=== PATIENT | female | born 1950 | race Hispanic/Latino ===

== ENCOUNTER 2017-11-02 11:04 | Outpatient (RCR) | payer MEDICARE | END 2017-11-05 | LOC: PT 11:04 | PROVIDERS: ATTEND Specialist | DX: M75.42 Impingement syndrome of left shoulder (principal); M62.81 Muscle weakness (generalized) | CPT/HCPCS: 97110; 97162; G8984; G8985; G8986 ==

== ENCOUNTER → 2019-02-19 | Day surgery (SDC) | payer MEDICARE ==
[2019-02-18 09:49] LABS: BASOPHILS % 0.5 % (0.0-1.0); EOSINOPHILS # (AUTO) 0.1 (0.0-0.4); EOSINOPHILS % 2.6 % (0.0-6.0); HEMATOCRIT 42.7 % (34.2-44.1); HEMOGLOBIN 14.5 g/dL (12.0-16.0); LYMPHOCYTES # (AUTO) 1.3 (1.0-3.2); LYMPHOCYTES % 33.2 % (18.0-39.1); MEAN CORPUSCULAR HEMOGLOBIN 31.9 pg (28-32); MEAN CORPUSCULAR VOLUME 94.1 fL (81-99); MONOCYTES # (AUTO) 0.3 (0.2-0.8); MONOCYTES % 8.4 % (4.4-11.3); NEUTROPHILS # (AUTO) 2.1 (2.1-6.9); PLATELET COUNT 218 x10e3/uL (140-360); RED BLOOD COUNT 4.54 x10e6/uL (3.6-5.1); RED CELL DISTRIBUTION WIDTH 12.2 % (11.7-14.4)
--- NOTE | 2019-02-18 11:54 | Diagnostic Imaging Report ---
EXAMINATION: CHEST 2 VIEWS INDICATION: Pre-admit. COMPARISON: None FINDINGS: TUBES and LINES: None. LUNGS: Lungs are well inflated. Lungs are clear. There is no evidence of pneumonia or pulmonary edema. PLEURA: No pleural effusion or pneumothorax. HEART AND MEDIASTINUM: The cardiomediastinal silhouette is unremarkable. BONES AND SOFT TISSUES: No acute osseous abnormality. Degenerative changes of the thoracic spine. UPPER ABDOMEN: No free air under the diaphragm. IMPRESSION: No acute radiographic abnormality. Signed by: Dr. Riya Finch MD on 02/18/2019 11:51 AM
[~2019-02-19] MED LIST: CEFAZOLIN SOD 1 GM/NS 50ML 50 ML IV ONE; DEXAMETHASONE SOD PHOS INJ 4 MG/ML VIAL ONE; FENTANYL CITRATE/PF 100MCG/2 ML INJ ONE; HYDRALAZINE HCL 20 MG/ML VIAL ONE; KETOROLAC TROMETHAMINE 30 MG/ML VIAL ONE; LIDOCAINE HCL 2% LOCAL INJ 5 ML SDV VIAL INJ ONE; LISINOPRIL10 MG PO; MIDAZOLAM HCL 2 MG/2 ML VIAL ONE; ONDANSETRON HCL INJ 2MG/ML 2ML 2 MG/ML VIAL ONE; PROPOFOL IV EMULSION 10 MG/ML 20 ML VIAL ONE; SEVOFLURANE INHAL SOLN 250 ML PEN BTL ONE
--- OUTSIDE RECORDS SUMMARY | 2019-02-19 06:24 | XMS REPORT ---
Author Author [facility] Organization [facility] Address Unknown Phone Unavailable Care Team Providers Care Conciliation Court Judge Name Role Phone SHIV WALTER Unavailable Unavailable Payers Payer Name Policy Type Policy Number Effective Date Expiration Date Problems This patient has no known problems. Allergies, Adverse Reactions, Alerts Allergy Name Allergy Type Status Severity Reaction(s) Onset Date Inactive Date Treating Clinician Comments No Known Allergies DA Active U 2017-09-11 00:00:00 Medications This patient has no known medications. Results Test Description Test Time Test Comments Text Results Atomic Results Result Comments CHEST 2 VIEWS 2019-02-18 11:50:00 [place] [address] Patient Name: WANDA GRAMAJO MR #: [id number] : 1950 Age/Sex: 68/F Req #: [id number] Adm Physician: Ordered by: SHIV WALTER MD Report #: [id number] Location: OR Room/Bed: Procedure: [id number] DX/CHEST 2 VIEWS Exam Date: 02/18/19 Exam Time: 1020 REPORT STATUS: Signed EXAMINATION: CHEST 2 VIEWS INDICATION: Pre-admit. COMPARISON: None FINDINGS: TUBES and LINES: None. LUNGS: Lungs are well inflated. Lungs are clear. There is no evidence of pneumonia or pulmonary edema. PLEURA: No pleural effusion or pneumothorax. HEART AND MEDIASTINUM: The cardiomediastinal silhouette is unremarkable. BONES AND SOFT TISSUES: No acute osseous abnormality. Degenerative changes of the thoracic spine. UPPER ABDOMEN: No free air under the diaphragm. IMPRESSION: No acute radiographic abnormality. Signed by: Dr. Bharath Carrington MD on 02/18/2019 11:51 AM Dictated By: BHARATH CARRINGTON MD [id number] Transcribed By: MENDY on 02/18/19 1151 COPY TO: SHIV WALTER MD
--- NOTE | 2019-02-19 07:20 | NUR ---
SPIRITUAL CARE - Pre-Surgery Assessment: Pt in bed. Pt's and daughter at bedside. Pt reported supportive attention from family and friends. Intervention: I provided pastoral presence, hospitality, and sympathetic listening. I acquainted pt with availability of wind field service manager while hospitalized. Outcome: Pt expressed appreciation for visit. No need for follow up indicated at this time. [place] [facility] Department O: [phone] Pager: [phone] ([phone] number calling from)
[2019-02-19 10:45] VITALS: BP 152/83
--- NOTE | 2019-02-19 10:52 | Operative Report ---
DATE OF PROCEDURE: 02/19/2019 SURGEON: Kofi Montana MD PRODUCTION GRIP: Greg Shafer, certified PA. PREOPERATIVE DIAGNOSIS: Right knee medial meniscal tear. POSTOPERATIVE DIAGNOSIS: Right knee medial meniscal tear plus medial parapatellar plica. PROCEDURE: Right knee arthroscopy, partial medial meniscectomy, resection of medial parapatellar plica. INDICATIONS: The patient is a 68-year-old lady who has clinic signs and symptoms consistent with a medial meniscal tear in her right knee. She has failed conservative management and would like to proceed with arthroscopic intervention. The risks and benefits have been explained. Realistic expectations and likelihood of persistent arthritic pain have been explained. She states she understands and wishes to proceed. PROCEDURE IN DETAIL: The patient was brought to the operating room and placed under general anesthetic. Her right lower extremity was prepped and draped in a sterile manner. A preoperative time-out was performed. The extremity had been exsanguinated and a proximal tourniquet was inflated to 300 mmHg. Standard arthroscopy portals were established. The knee was insufflated with sterile saline and systematically inspected. 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 There was a thickened medial parapatellar plica. Attention was directed towards the medial compartment. There were grade 1 changes of the weightbearing surfaces of the medial femoral condyle. There was an obvious complex tear of the posterior horn of the medial meniscus. This was debrided back to a stable margin using a combination of biting forceps and a mechanical shaver. Before and after photographs were taken. The cruciate ligaments were inspected and noted to be unremarkable. The lateral compartment was unremarkable. Attention was returned to the medial parapatellar plica. I initially intended to leave this alone. However, upon further probing, there was an obvious large kissing lesion on the medial femoral condyle. The medial parapatellar plica was resected. The arthroscopic instruments were removed. The portal incisions were closed with nylon stitches. A sterile bandage was applied. The patient was extubated and transported to the recovery room in stable condition. There was no blood loss and all needle and sponge counts were correct. Kofi Montana MD DR/HERIBERTO /[id number]
== END | disposition home or self-care (01) ==
LOC: OR 06:22
PROVIDERS: ATTEND Specialist
DX: S83.231A Complex tear of medial meniscus, current injury, right knee, initial encounter (principal); S83.221A Peripheral tear of medial meniscus, current injury, right knee, initial encounter; M67.51 Plica syndrome, right knee; M22.41 Chondromalacia patellae, right knee; M19.90 Unspecified osteoarthritis, unspecified site; I10 Essential (primary) hypertension; E03.9 Hypothyroidism, unspecified; K21.9 Gastro-esophageal reflux disease without esophagitis; X58.XXXA Exposure to other specified factors, initial encounter; Z01.810 Encounter for preprocedural cardiovascular examination; Z01.812 Encounter for preprocedural laboratory examination; Z01.818 Encounter for other preprocedural examination; Z68.30 Body mass index [BMI] 30.0-30.9, adult
CPT/HCPCS: 29881; 36415; 71046; 85025; 93005; J0360; J0690; J1100; J1885; J2001; J2250; J2405; J2704

== ENCOUNTER 2019-02-20 23:31 | Emergency (ER) | payer MEDICARE ==
[~2019-02-20] VITALS: Ht 154.9 cm; Wt 72.6 kg
[~2019-02-20 23:31] MED LIST changes: -CEFAZOLIN SOD 1 GM/NS 50ML 50 ML IV ONE; -DEXAMETHASONE SOD PHOS INJ 4 MG/ML VIAL ONE; -FENTANYL CITRATE/PF 100MCG/2 ML INJ ONE; -HYDRALAZINE HCL 20 MG/ML VIAL ONE; -KETOROLAC TROMETHAMINE 30 MG/ML VIAL ONE; -LIDOCAINE HCL 2% LOCAL INJ 5 ML SDV VIAL INJ ONE; -MIDAZOLAM HCL 2 MG/2 ML VIAL ONE; -ONDANSETRON HCL INJ 2MG/ML 2ML 2 MG/ML VIAL ONE; -PROPOFOL IV EMULSION 10 MG/ML 20 ML VIAL ONE; -SEVOFLURANE INHAL SOLN 250 ML PEN BTL ONE
[2019-02-20] MEDS ORDERED: ONDANSETRON HCL INJ 2MG/ML 2ML 2 MG/ML VIAL IV STA (23:41)
[2019-02-20] MEDS ORDERED: CLONIDINE HCL 0.1 MG TAB PO ONE (23:45)
[2019-02-21 00:55] LABS: BASOPHILS % 0.4 % (0.0-1.0); EOSINOPHILS # (AUTO) 0.1 (0.0-0.4); EOSINOPHILS % 1.3 % (0.0-6.0); HEMATOCRIT 40.7 % (34.2-44.1); HEMOGLOBIN 13.8 g/dL (12.0-16.0); LYMPHOCYTES # (AUTO) 3.1 (1.0-3.2); LYMPHOCYTES % 45.7 % (18.0-39.1); MEAN CORPUSCULAR HEMOGLOBIN 31.4 pg (28-32); MEAN CORPUSCULAR HGB CONC 33.9 g/dL (31-35); MEAN CORPUSCULAR VOLUME 92.5 fL (81-99); MONOCYTES # (AUTO) 0.3 (0.2-0.8); NEUTROPHILS # (AUTO) 3.2 (2.1-6.9); NEUTROPHILS % 48.3 % (38.7-80.0); PLATELET COUNT 219 x10e3/uL (140-360); RED CELL DISTRIBUTION WIDTH 12.3 % (11.7-14.4)
--- NOTE | 2019-02-21 01:05 | NUR ---
md ordered do not give clonidine at this moment
[2019-02-21 01:11] LABS: ALBUMIN 3.9 g/dL (3.5-5.0); ALBUMIN/GLOBULIN RATIO 1.2 (0.8-2.0); ANION GAP 14.7 mmol/L (8-16); CALCIUM 9.2 mg/dL (8.4-10.2); CREATININE, SERUM 0.96 mg/dL (0.57-1.11); POTASSIUM 3.7 mmol/L (3.5-5.1)
[2019-02-21 01:17] LABS: CREATINE KINASE MB 2.2 ng/mL (0-5.0)
[2019-02-21 01:28] LABS: CLARITY,URINE CLEAR (CLEAR); COLOR,URINE YELLOW (YELLOW); LEUKOCYTE ESTERASE ,URINE 1+ (NEGATIVE); NITRITE,URINE NEGATIVE (NEGATIVE); PROTEIN,URINE DIPSTICK NEGATIVE (NEGATIVE)
[2019-02-21 01:29] LABS: BILIRUBIN,URINE NEGATIVE (NEGATIVE); KETONES,URINE NEGATIVE (NEGATIVE); URINE UROBILINOGEN 0.2 mg/dL (0.2 - 1)
[2019-02-21 01:38] LABS: BACTERIA,URINE FEW /HPF; EPITHELIAL CELLS,URINE FEW /LPF; RBC,URINE 0-5 /HPF (0-5)
[2019-02-21 02:05] VITALS: BP 151/73
== END 2019-02-21 02:12 | disposition home or self-care (01) ==
LOC: ER 23:31
DX: I10 Essential (primary) hypertension (principal); E03.9 Hypothyroidism, unspecified
CPT/HCPCS: 36415; 80053; 81001; 82550; 82553; 84484; 85025; 93005; 99283

== ENCOUNTER 2024-08-12 08:29 | Outpatient (RCR) | payer MEDICARE | END 2024-09-05 | LOC: PT 08:29 | PROVIDERS: ATTEND Specialist | DX: M75.101 Unspecified rotator cuff tear or rupture of right shoulder, not specified as traumatic (principal); M25.511 Pain in right shoulder; M25.611 Stiffness of right shoulder, not elsewhere classified; M62.81 Muscle weakness (generalized) ==

== ENCOUNTER 2025-01-28 09:00 | Outpatient (RCR) | payer MEDICARE | END 2025-02-03 | LOC: PT 09:00 | PROVIDERS: ATTEND Physician Assistant | DX: M75.111 Incomplete rotator cuff tear or rupture of right shoulder, not specified as traumatic (principal); M62.81 Muscle weakness (generalized); M25.511 Pain in right shoulder; M25.611 Stiffness of right shoulder, not elsewhere classified ==

== ENCOUNTER 2025-02-18 07:54 | Outpatient (RCR) | payer MEDICARE | END 2025-03-05 | LOC: PT 07:54 | PROVIDERS: ATTEND Physician Assistant | DX: M75.111 Incomplete rotator cuff tear or rupture of right shoulder, not specified as traumatic (principal); M62.81 Muscle weakness (generalized); M25.511 Pain in right shoulder; M25.611 Stiffness of right shoulder, not elsewhere classified ==

== ENCOUNTER → 2025-03-06 | Outpatient (REF) | payer MEDICARE ==
[~2025-03-06] MED LIST changes: +IOPAMIDOL 370 MG/ML 100 ML INFUS..BTL INJ ONE; +METOPROLOL TARTRATE 25 MG TAB ONE; +NITROGLYCERIN 0.4 MG SUBL ONE; +SODIUM CHLORIDE 0.9% 0 ML ONE
[2025-03-06 10:01] LABS: CREATININE, SERUM 0.93 mg/dL (0.57-1.11)
== END ==
LOC: CT 09:10
PROVIDERS: ATTEND Internal Medicine Cardiovascular Disease
DX: R07.9 Chest pain, unspecified (principal)
CPT/HCPCS: 36415; 75574; 82565; 84520; Q9967; J7050